=== PATIENT | male | born 1945 | race Caucasian/White ===

== ENCOUNTER 2019-11-28 21:22 | Inpatient (IN) ==
[2019-11-28] MEDS ORDERED: Isovue-370 500 ML BOTTLE IVP ONE (21:27)
[2019-11-28 21:51] LABS: Basophils # 0.1 K/mcL (0.0-0.2); Basophils % 0.8 %; Eosinophils # 0.4 K/mcL (0.0-0.6); Eosinophils % 3.6 %; Hematocrit 38.4 % (37.5-50.1); Lymphocytes # 2.2 K/mcL (0.6-4.6); Lymphocytes % 21.5 %; Mean Corpuscular HGB Conc 33.9 g/dL (31.6-35.5); Mean Corpuscular Hemoglobin 32.9 pg (28.0-33.3); Mean Corpuscular Volume 97.2 fL (83.0-100.0); Mean Platelet Volume 9.6 fL (9.4-12.4); Monocytes # 1.2 K/mcL (0.0-1.3); Neutrophils # 6.2 K/mcL (1.6-8.9); Platelet Count 147 K/mcL (140-400); Red Blood Count 3.95 M/mcL (4.19-5.50); Segmented Neutrophils % 61.1 %; White Blood Count 10.1 K/mcL (4.3-11.1)
[2019-11-28 22:04] LABS: BUN/Creatinine Ratio 26 (6-26); Blood Urea Nitrogen 35 mg/dL (8-23); Calcium 8.3 mg/dL (8.6-10.3); Carbon Dioxide 26 mEq/L (23-29); Chloride 107 mEq/L (98-107); Glucose 133 mg/dL (70-105); INR 1.1; Osmolality,Calculated 298 (280-300); Potassium 4.1 mEq/L (3.5-5.1); Prothrombin Time 12.4 Seconds (9.4-12.1); Sodium 139 mEq/L (136-145); eGFR For African Americans > 60 (> 60); eGFR For Non-African Americans 51 (> 60)
[2019-11-28 22:06] LABS: Activated Partial Thrombo Time 27.8 Seconds (26.0-36.0)
[2019-11-28 22:07] LABS: Troponin I < 0.03 ng/mL (< 0.04)
[2019-11-28 22:25] LABS: Bacteria,Urine Few per hpf (None-Few); Bilirubin,Urine Negative (Negative); Blood,Urine Negative (Negative); Clarity,Urine Clear (Clear); Color,Urine Light-Yellow (Yellow); Glucose,Urine (UA) Normal (Normal); Ketones,Urine Negative (Negative); Leukocyte Esterase,Urine Trace (Negative); Mucus,Urine Few per lpf (None-Few); Nitrite,Urine Negative (Negative); PH,Urine 5.5 pH Units (5.0-8.0); Protein,Urine 30 mg/dL (Neg-Trace); Specific Gravity,Urine > 1.030 (1.010-1.025); Squamous Epithelial Cell,Urine Few per hpf (None-Few); Urobilinogen,Urine Normal (Normal); WBC,Urine 0-3 per hpf (0-3)
[2019-11-28] MEDS ORDERED: *HR* LORazepam 2 MG/ML VIAL IVP ONE (23:21)
[2019-11-29] MEDS ORDERED: *HR* LORazepam 2 MG/ML VIAL IVP ONE (00:13)
[2019-11-29] MEDS ORDERED: levETIRAcetam 1,000 MG in 0.9 % Sodium Chloride 100 ML IVPB ONE (00:18)
[2019-11-29] MEDS ORDERED: *HR* Promethazine 25 MG/ML VIAL IVP PRN (00:29)
[2019-11-29] MEDS ORDERED: Naloxone 0.4 MG/ML INJ IVP PRN (00:29)
[2019-11-29] MEDS ORDERED: *HR* LORazepam 2 MG/ML VIAL IVP PRN (00:32)
[2019-11-29 00:42] LABS: Basophils % 0.8 %; Monocytes % 10.1 %; Red Cell Distribution Width 11.9 % (11.5-14.5)
[2019-11-29 00:44] LABS: Basophils # 0.1 K/mcL (0.0-0.2); Eosinophils # 0.3 K/mcL (0.0-0.6); Eosinophils % 1.8 %; Hematocrit 45.4 % (37.5-50.1); Hemoglobin 14.7 g/dL (12.9-16.9); Immature Granulocytes % 0.9 % (0-4); Lymphocytes # 3.4 K/mcL (0.6-4.6); Lymphocytes % 23.9 %; Mean Corpuscular HGB Conc 32.4 g/dL (31.6-35.5); Mean Corpuscular Hemoglobin 33.3 pg (28.0-33.3); Mean Corpuscular Volume 102.9 fL (83.0-100.0); Monocytes # 1.5 K/mcL (0.0-1.3); Platelet Count 126 K/mcL (140-400); Red Blood Count 4.41 M/mcL (4.19-5.50); Segmented Neutrophils % 62.5 %; White Blood Count 14.4 K/mcL (4.3-11.1)
[2019-11-29 01:04] LABS: Alanine Aminotransferase 8 Units/L (7-52); Albumin 3.8 g/dL (3.5-5.7); Albumin/Globulin Ratio 1.5 (1.1-2.2); Alkaline Phosphatase 58 Units/L (34-104); Aspartate Amino Transferase 12 Units/L (13-39); BUN/Creatinine Ratio 27 (6-26); Bilirubin,Total 0.5 mg/dL (0.3-1.0); Blood Urea Nitrogen 35 mg/dL (8-23); Calcium 8.7 mg/dL (8.6-10.3); Carbon Dioxide 19 mEq/L (23-29); Chloride 108 mEq/L (98-107); Globulin 2.5 g/dL (2.4-3.5); Glucose 128 mg/dL (70-105); Osmolality,Calculated 300 (280-300); Potassium 4.1 mEq/L (3.5-5.1); Sodium 140 mEq/L (136-145); Total Protein 6.3 g/dL (6.4-8.9); Troponin I < 0.03 ng/mL (< 0.04); eGFR For African Americans > 60 (> 60); eGFR For Non-African Americans 53 (> 60)
[2019-11-29 01:28] LABS: Prothrombin Time 11.7 Seconds (9.4-12.1)
[2019-11-29 01:29] LABS: Chol/HDL Ratio 3.1 (0-4.9); Cholesterol 129 mg/dL (< 200); HDL Cholesterol 42 mg/dL (40-59); LDL Cholesterol,Calculated 65 mg/dL (< 100); Triglycerides 110 mg/dL (< 150)
[2019-11-29 01:42] LABS: Thyroid Stimulating Hormone 2.252 mcIU/mL (0.340-5.600)
[2019-11-29 02:04] LABS: Folate 5.2 ng/mL (3.0-16.0)
[2019-11-29] MEDS ORDERED: Albuterol 2.5 MG/3 ML NEBULIZER IH PRN (02:42)
[2019-11-29] MEDS ORDERED: Ketoconazole Shampoo 120 ML BOTTLE TP SCH (03:30)
[2019-11-29 07:55] LABS: Estimated Average Glucose 120 mg/dl
[2019-11-29] MEDS ORDERED: Barium Sulfate 1 TAB TABLET PO ONE (10:11)
[2019-11-29] MEDS ORDERED: E-Z-HD (BARIUM SULF) SUSPENSION PO ONE (10:11)
[2019-11-29] MEDS ORDERED: E-Z-PAQUE (BARIUM SULF) SUSP 1 BOTTLE PO ONE (10:11)
[2019-11-29] MEDS: Sennosides 8.6 MG TABLET PO SCH (11:17)
[2019-11-29] MEDS: Spironolactone 25 MG TABLET PO SCH (11:18)
[2019-11-29] MEDS: hydroCHLOROthiazide 25 MG TABLET PO SCH (11:18)
[2019-11-29] MEDS: Finasteride 5 MG TABLET PO SCH (11:18)
[2019-11-29] MEDS: Divalproex Sodium 125 MG CAPSULE PO SCH (11:18)
[2019-11-30 05:12] LABS: Hematocrit 40.1 % (37.5-50.1); Hemoglobin 13.9 g/dL (12.9-16.9); Mean Corpuscular HGB Conc 34.7 g/dL (31.6-35.5); Mean Corpuscular Hemoglobin 33.8 pg (28.0-33.3); Mean Corpuscular Volume 97.6 fL (83.0-100.0); Mean Platelet Volume 9.7 fL (9.4-12.4); Platelet Count 150 K/mcL (140-400); Red Blood Count 4.11 M/mcL (4.19-5.50)
[2019-11-30 05:28] LABS: BUN/Creatinine Ratio 24 (6-26); Blood Urea Nitrogen 27 mg/dL (8-23); Carbon Dioxide 27 mEq/L (23-29); Chloride 105 mEq/L (98-107); Glucose 79 mg/dL (70-105); Osmolality,Calculated 290 (280-300); Sodium 138 mEq/L (136-145); eGFR For African Americans > 60 (> 60); eGFR For Non-African Americans > 60 (> 60)
[2019-11-30] MEDS: hydroCHLOROthiazide 25 MG TABLET PO SCH (08:08)
[2019-11-30] MEDS: Finasteride 5 MG TABLET PO SCH (08:09)
[2019-11-30] MEDS: Spironolactone 25 MG TABLET PO SCH (08:09)
[2019-11-30] MEDS: Divalproex Sodium 125 MG CAPSULE PO SCH (08:09)
[2019-11-30] MEDS: Sennosides 8.6 MG TABLET PO SCH (08:10)
[2019-12-01 05:33] LABS: Hematocrit 41.6 % (37.5-50.1); Hemoglobin 14.7 g/dL (12.9-16.9); Mean Corpuscular HGB Conc 35.3 g/dL (31.6-35.5); Mean Corpuscular Hemoglobin 33.8 pg (28.0-33.3); Mean Corpuscular Volume 95.6 fL (83.0-100.0); Mean Platelet Volume 9.8 fL (9.4-12.4); Platelet Count 164 K/mcL (140-400); Red Blood Count 4.35 M/mcL (4.19-5.50); Red Cell Distribution Width 11.8 % (11.5-14.5); White Blood Count 11.3 K/mcL (4.3-11.1)
[2019-12-01 05:52] LABS: BUN/Creatinine Ratio 28 (6-26); Blood Urea Nitrogen 35 mg/dL (8-23); Calcium 8.9 mg/dL (8.6-10.3); Carbon Dioxide 25 mEq/L (23-29); Chloride 104 mEq/L (98-107); Glucose 84 mg/dL (70-105); Osmolality,Calculated 293 (280-300); Potassium 3.7 mEq/L (3.5-5.1); Sodium 138 mEq/L (136-145); eGFR For African Americans > 60 (> 60); eGFR For Non-African Americans 57 (> 60)
[2019-12-01] MEDS: Spironolactone 25 MG TABLET PO SCH (08:37)
[2019-12-01] MEDS: Sennosides 8.6 MG TABLET PO SCH (08:37)
[2019-12-01] MEDS: hydroCHLOROthiazide 25 MG TABLET PO SCH (08:39)
[2019-12-01] MEDS: Finasteride 5 MG TABLET PO SCH (08:39)
[2019-12-01] MEDS: Divalproex Sodium 125 MG CAPSULE PO SCH (08:40)
[2019-12-01 23:36] LABS: Valproate Free 7 ug/mL (7-23); Valproate Total 37 ug/mL (50-125)
[2019-12-02 04:21] VITALS: BP 114/81
[2019-12-02 08:02] LABS: Valproate % Free 19 % (5-18)
== END 2019-12-02 06:59 | DRG 71 ==
LOC: EMEROOARM 21:22 → 3BNU 21:22 → SUATTDRO 11-29 14:14
PROVIDERS: ADMIT Student in an Organized Health Care Education/Training Program; ATTEND Nurse Practitioner Adult Health

== ENCOUNTER 2021-03-10 02:26 | Observation (INO) ==
[2021-03-10] MEDS ORDERED: Isovue-370 500 ML BOTTLE IVP ONE ×2 (02:37→06:12)
[2021-03-10 02:51] LABS: Hematocrit 41.1 % (37.5-50.1); Mean Corpuscular HGB Conc 34.1 g/dL (31.6-35.5); Mean Corpuscular Hemoglobin 32.5 pg (28.0-33.3); Mean Corpuscular Volume 95.4 fL (83.0-100.0); Platelet Count 131 K/mcL (140-400); Red Blood Count 4.31 M/mcL (4.19-5.50); Red Cell Distribution Width 12.1 % (11.5-14.5); White Blood Count 11.6 K/mcL (4.3-11.1)
[2021-03-10 02:58] LABS: INR 1.1; Prothrombin Time 12.8 Seconds (9.4-12.1)
[2021-03-10 03:02] LABS: Activated Partial Thrombo Time 29.6 Seconds (26.0-36.0)
[2021-03-10 04:16] LABS: BUN/Creatinine Ratio 15 (6-26); Blood Urea Nitrogen 18 mg/dL (8-23); Calcium 8.9 mg/dL (8.6-10.3); Carbon Dioxide 25 mEq/L (23-29); Chloride 109 mEq/L (98-107); Ethanol < 10 mg/dL (Less than 10); Glucose 124 mg/dL (70-105); Osmolality,Calculated 299 (280-300); Sodium 143 mEq/L (136-145); Troponin I < 0.03 ng/mL (< 0.04); eGFR For African Americans > 60 (> 60); eGFR For Non-African Americans > 60 (> 60)
[2021-03-10 05:33] LABS: Alanine Aminotransferase 8 Units/L (7-52); Albumin 3.6 g/dL (3.5-5.7); Albumin/Globulin Ratio 1.4 (1.1-2.2); Alkaline Phosphatase 90 Units/L (34-104); Aspartate Amino Transferase 10 Units/L (13-39); Bilirubin,Direct 0.2 mg/dL (0.0-0.2); Bilirubin,Indirect 0.7 mg/dL (0.0-1.0); Bilirubin,Total 0.9 mg/dL (0.3-1.0); Globulin 2.6 g/dL (2.4-3.5); Total Protein 6.2 g/dL (6.4-8.9); Valproate < 4 mcg/mL (50-100)
[2021-03-10 06:09] LABS: Bilirubin,Urine Negative (Negative); Blood,Urine Large (Negative); Clarity,Urine Cloudy (Clear); Color,Urine Yellow (Yellow); Glucose,Urine (UA) Normal (Normal); Ketones,Urine Negative (Negative); Leukocyte Esterase,Urine Small (Negative); Nitrite,Urine Negative (Negative); PH,Urine 5.5 pH Units (5.0-8.0); Protein,Urine Trace mg/dL (Neg-Trace); Specific Gravity,Urine 1.025 (1.010-1.025); Urobilinogen,Urine Normal (Normal)
[2021-03-10 06:13] LABS: Amphetamine Screen,Urine Negative ng/mL (Cutoff=1000); Barbiturate Screen,Urine Negative ng/mL (Cutoff=200)
[2021-03-10 06:14] LABS: Benzodiazepines Screen,Urine Negative ng/mL (Cutoff=300); Cannabinoid Screen,Urine Negative ng/mL (Cutoff = 50); Cocaine Screen,Urine Negative ng/mL (Cutoff= 300); Opiate Screen,Urine Negative ng/mL (Cutoff=300); Phencyclidine Screen,Urine Negative ng/mL (Cutoff=25)
[2021-03-10 06:17] LABS: RBC,Urine 30-50 per hpf (0-3); Squamous Epithelial Cell,Urine Few per hpf (None-Few); Transitional Epi Cells,Urine Few per hpf (None-Few)
[2021-03-10 06:18] LABS: Bacteria,Urine Few per hpf (None-Few)
[2021-03-10] MEDS ORDERED: Naloxone 0.4 MG/ML INJ IVP PRN (08:13)
[2021-03-10] MEDS ORDERED: Ondansetron 4 MG/2 ML VIAL IVP PRN (08:13)
[2021-03-10] MEDS ORDERED: D5% in Water 1,000 ML IVC PRN (08:42)
[2021-03-10] MEDS ORDERED: *HR* Dextrose 50 % in Water (Syg) 50 ML SYRINGE IVP PRN (08:42)
[2021-03-10] MEDS ORDERED: Dextrose Gel 15 GM/37.5 ML TUBE PO PRN ×2 (08:42)
[2021-03-10] MEDS ORDERED: Valproic Acid INJ 1,000 MG in 0.9 % Sodium Chloride 100 ML IVPB ONE (08:48)
[2021-03-10] MEDS ORDERED: Spironolactone 12.5 MG TABLET PO SCH (09:00)
[2021-03-10] MEDS ORDERED: Acetaminophen 325 MG TABLET PO PRN (12:28)
[2021-03-10] MEDS ORDERED: Bisacodyl 10 MG RECTAL SUPPOSITORY RC PRN (12:28)
[2021-03-10] MEDS: Finasteride 5 MG TABLET PO SCH (14:41)
[2021-03-10] MEDS: levETIRAcetam 250 MG TABLET PO SCH ×2 (14:41→20:05)
[2021-03-10] MEDS: Insulin LISPRO 300 UNITS/3 ML VIAL SUBQ SCH ×2 (14:42→18:18)
[2021-03-10] MEDS: Divalproex (12 HR) 500 MG TABLET PO SCH (20:04)
[2021-03-10] MEDS: Melatonin 3 MG TABLET PO SCH (20:05)
[2021-03-10] MEDS: Sennosides/Docusate Sodium TABLET PO SCH (20:14)
[2021-03-11] MEDS: Insulin LISPRO 300 UNITS/3 ML VIAL SUBQ SCH ×5 (02:40→23:24)
[2021-03-11 07:17] LABS: INR 1.2; Prothrombin Time 13.4 Seconds (9.4-12.1)
[2021-03-11 07:46] LABS: Hematocrit 39.4 % (37.5-50.1); Hemoglobin 13.1 g/dL (12.9-16.9); Mean Corpuscular HGB Conc 33.2 g/dL (31.6-35.5); Mean Corpuscular Volume 96.1 fL (83.0-100.0); Mean Platelet Volume 9.8 fL (9.4-12.4); Platelet Count 152 K/mcL (140-400); Red Cell Distribution Width 12.1 % (11.5-14.5)
[2021-03-11 08:07] LABS: Alanine Aminotransferase 7 Units/L (7-52); Albumin 3.5 g/dL (3.5-5.7); Albumin/Globulin Ratio 1.5 (1.1-2.2); Alkaline Phosphatase 86 Units/L (34-104); Aspartate Amino Transferase 12 Units/L (13-39); BUN/Creatinine Ratio 18 (6-26); Bilirubin,Total 1.3 mg/dL (0.3-1.0); Blood Urea Nitrogen 18 mg/dL (8-23); Calcium 8.7 mg/dL (8.6-10.3); Carbon Dioxide 27 mEq/L (23-29); Chloride 109 mEq/L (98-107); Chol/HDL Ratio 3.4 (0-4.9); Cholesterol 120 mg/dL (< 200); Globulin 2.4 g/dL (2.4-3.5); Glucose 57 mg/dL (70-105); HDL Cholesterol 35 mg/dL (40-59); LDL Cholesterol,Calculated 68 mg/dL (< 100); Osmolality,Calculated 288 (280-300); Potassium 3.7 mEq/L (3.5-5.1); Sodium 139 mEq/L (136-145); Total Protein 5.9 g/dL (6.4-8.9); Triglycerides 84 mg/dL (< 150); Troponin I < 0.03 ng/mL (< 0.04); eGFR For African Americans > 60 (> 60); eGFR For Non-African Americans > 60 (> 60)
[2021-03-11 08:29] LABS: Estimated Average Glucose 114 mg/dl; Hemoglobin A1C 5.6 %
[2021-03-11] MEDS: Finasteride 5 MG TABLET PO SCH (11:01)
[2021-03-11] MEDS: Divalproex (12 HR) 500 MG TABLET PO SCH (11:01)
[2021-03-11] MEDS: levETIRAcetam 250 MG TABLET PO SCH ×2 (11:01→20:02)
[2021-03-11 12:50] LABS: Influenza A PCR Negative (Negative); Influenza B PCR Negative (Negative); Resp. Syncytial Virus PCR Negative (Negative)
[2021-03-11 12:51] LABS: SARS-CoV-2 by PCR (In House) Negative (Negative)
[2021-03-11] MEDS: OXcarbazepine 150 MG TABLET PO SCH (20:03)
[2021-03-11] MEDS: Melatonin 3 MG TABLET PO SCH (20:03)
[2021-03-11] MEDS: Sennosides/Docusate Sodium TABLET PO SCH (20:03)
[2021-03-12] MEDS: Insulin LISPRO 300 UNITS/3 ML VIAL SUBQ SCH (06:08)
[2021-03-12 07:27] VITALS: BP 130/80; PULSE 96; TEMP 97.6; O2SAT 94
[2021-03-12] MEDS: OXcarbazepine 150 MG TABLET PO SCH (07:40)
[2021-03-12] MEDS: Finasteride 5 MG TABLET PO SCH (07:40)
[2021-03-12] MEDS: levETIRAcetam 250 MG TABLET PO SCH (07:41)
== END 2021-03-12 09:23 | disposition home or self-care (01) ==
LOC: EMEROOARM 02:26 → 3BNU 02:26 → SUATTDRO 08:26 → 3BNU 11:03
PROVIDERS: ADMIT Family Medicine; ATTEND Internal Medicine

== ENCOUNTER 2021-07-11 07:57 | Inpatient (IN) ==
[2021-07-11] MEDS ORDERED: 0.9 % Sodium Chloride 1,000 ML IVC ONE (08:09)
[2021-07-11] MEDS ORDERED: cefTRIAXone 1,000 MG in Water for inj. (sterile) 10 ML IVP ONE (08:10)
[2021-07-11] MEDS ORDERED: Isovue-370 500 ML BOTTLE IVP ONE ×2 (08:12→08:45)
[2021-07-11 08:53] LABS: Red Cell Distribution Width 12.4 % (11.5-14.5)
[2021-07-11 08:55] LABS: Hematocrit 39.3 % (37.5-50.1); Hemoglobin 13.5 g/dL (12.9-16.9); Mean Corpuscular HGB Conc 34.4 g/dL (31.6-35.5); Mean Corpuscular Hemoglobin 33.2 pg (28.0-33.3); Mean Corpuscular Volume 96.6 fL (83.0-100.0); Mean Platelet Volume 9.7 fL (9.4-12.4); Monocytes # 0.5 K/mcL (0.0-1.3); Platelet Count 106 K/mcL (140-400); Red Blood Count 4.07 M/mcL (4.19-5.50); White Blood Count 26.7 K/mcL (4.3-11.1)
[2021-07-11 09:04] LABS: INR 1.5; Prothrombin Time 16.6 Seconds (9.4-12.1)
[2021-07-11 09:06] LABS: Activated Partial Thrombo Time 31.9 Seconds (26.0-36.0)
[2021-07-11 09:21] LABS: Albumin 3.4 g/dL (3.5-5.7); Albumin/Globulin Ratio 1.5 (1.1-2.2); Bilirubin,Direct 0.4 mg/dL (0.0-0.2); Bilirubin,Indirect 0.5 mg/dL (0.0-1.0); Bilirubin,Total 0.9 mg/dL (0.3-1.0); Calcium 8.4 mg/dL (8.6-10.3); Globulin 2.2 g/dL (2.4-3.5); Lymphocytes # 0.5 K/mcL (0.6-4.6); Magnesium 1.4 mg/dL (1.6-2.6); Neutrophils # 25.6 K/mcL (1.6-8.9); Phosphorous 1.2 mg/dL (2.7-4.5); Platelet Estimate Slight Decrease (Normal); Potassium 3.2 mEq/L (3.5-5.1); Total Protein 5.6 g/dL (6.4-8.9); Troponin I 0.06 ng/mL (< 0.04)
[2021-07-11] MEDS ORDERED: cefTRIAXone 1,000 MG in 0.9 % Sodium Chloride 10 ML IVP ONE (09:23)
[2021-07-11 09:26] LABS: Influenza A PCR Negative (Negative); Influenza B PCR Negative (Negative); Resp. Syncytial Virus PCR Negative (Negative)
[2021-07-11 09:28] LABS: SARS-CoV-2 by PCR (In House) Negative (Negative)
[2021-07-11 09:55] LABS: Bilirubin,Urine Large (Negative); Blood,Urine Large (Negative); Clarity,Urine Cloudy (Clear); Color,Urine Brown (Yellow); Glucose,Urine (UA) 100 mg/dL (Normal); Ketones,Urine 15 mg/dL (Negative); Leukocyte Esterase,Urine Large (Negative); Nitrite,Urine Positive (Negative); Protein,Urine >=300 mg/dL (Neg-Trace)
[2021-07-11] MEDS ORDERED: Acetaminophen 325 MG TABLET PO PRN (11:35)
[2021-07-11] MEDS ORDERED: MOM Conc 10 ML UD.LIQ PO PRN (11:35)
[2021-07-11] MEDS ORDERED: Ondansetron ODT 4 MG TAB.RAPDIS SL PRN (11:35)
[2021-07-11] MEDS ORDERED: Melatonin 3 MG TABLET PO PRN (11:35)
[2021-07-11] MEDS ORDERED: Naloxone 0.4 MG/ML INJ IVP PRN (11:35)
[2021-07-11] MEDS ORDERED: GuaiFENesin Liq 200 MG/10 ML UDC PO PRN (11:36)
[2021-07-11] MEDS ORDERED: Levalbuterol Neb 1.25 MG/3 ML IH PRN (11:36)
[2021-07-11] MEDS ORDERED: Azithromycin 500 MG in 0.9 % Sodium Chloride 250 ML IVPB SCH (12:00)
[2021-07-11] MEDS ORDERED: Dextrose 4 GM Chewable Tablets PO PRN ×2 (14:05)
[2021-07-11] MEDS ORDERED: D5% in Water 1,000 ML IVC PRN (14:05)
[2021-07-11] MEDS ORDERED: 0.9 % Sodium Chloride 500 ML IVC ONE ×2 (15:44→16:47)
[2021-07-11] MEDS ORDERED: 0.9 % Sodium Chloride 1,000 ML IV ONE (17:42)
[2021-07-11] MEDS: Insulin LISPRO 300 UNITS/3 ML VIAL SUBQ SCH (17:59)
[2021-07-11] MEDS: Ertapenem 1,000 MG in 0.9 % Sodium Chloride Mini Bag 100 ML IVPB SCH (18:18)
[2021-07-11] MEDS: OXcarbazepine 150 MG TABLET PO SCH (20:38)
[2021-07-11] MEDS: levETIRAcetam 250 MG TABLET PO SCH (20:39)
[2021-07-11] MEDS: *HR* Heparin 5,000 UNIT/ML VIAL SQ SCH (21:19)
[2021-07-12] MEDS: Insulin LISPRO 300 UNITS/3 ML VIAL SUBQ SCH ×5 (02:50→23:35)
[2021-07-12] MEDS: *HR* Dextrose 50 % in Water (Syg) 50 ML SYRINGE IVP PRN ×3 (03:02→12:59)
[2021-07-12] MEDS: *HR* Heparin 5,000 UNIT/ML VIAL SQ SCH ×3 (05:12→21:38)
[2021-07-12] MEDS ORDERED: cefTRIAXone 2,000 MG in 0.9 % Sodium Chloride 20 ML IVP SCH (09:00)
[2021-07-12] MEDS: Ertapenem 1,000 MG in 0.9 % Sodium Chloride Mini Bag 100 ML IVPB SCH (10:41)
[2021-07-12] MEDS: Finasteride 5 MG TABLET PO SCH (13:18)
[2021-07-12] MEDS: levETIRAcetam 250 MG TABLET PO SCH ×2 (13:18→21:38)
[2021-07-12] MEDS: OXcarbazepine 150 MG TABLET PO SCH ×2 (13:25→21:38)
[2021-07-12 14:45] LABS: Eosinophils % 0.7 %; Hemoglobin 12.7 g/dL (12.9-16.9); Mean Platelet Volume 10.8 fL (9.4-12.4); Red Cell Distribution Width 12.8 % (11.5-14.5)
[2021-07-12 14:47] LABS: Basophils % 0.2 %; Eosinophils # 0.1 K/mcL (0.0-0.6); Hematocrit 37.7 % (37.5-50.1); Immature Granulocytes % 0.6 % (0-4); Lymphocytes # 0.7 K/mcL (0.6-4.6); Lymphocytes % 5.2 %; Mean Corpuscular HGB Conc 33.7 g/dL (31.6-35.5); Mean Corpuscular Hemoglobin 33.3 pg (28.0-33.3); Monocytes # 0.9 K/mcL (0.0-1.3); Neutrophils # 12.5 K/mcL (1.6-8.9); Red Blood Count 3.81 M/mcL (4.19-5.50); Segmented Neutrophils % 87.3 %; White Blood Count 14.3 K/mcL (4.3-11.1)
[2021-07-12 15:08] LABS: BUN/Creatinine Ratio 30 (6-26); Blood Urea Nitrogen 34 mg/dL (8-23); Calcium 8.1 mg/dL (8.6-10.3); Carbon Dioxide 26 mEq/L (23-29); Chloride 112 mEq/L (98-107); Glucose 109 mg/dL (70-105); Magnesium 1.9 mg/dL (1.6-2.6); Osmolality,Calculated 306 (280-300); Platelet Count 88 K/mcL (140-400); Potassium 3.5 mEq/L (3.5-5.1); Sodium 144 mEq/L (136-145); eGFR For African Americans > 60 (> 60); eGFR For Non-African Americans > 60 (> 60)
[2021-07-12 15:09] LABS: Platelet Estimate Slight Decrease (Normal)
[2021-07-13 03:03] VITALS: PULSE 92; TEMP 97.7
[2021-07-13 05:22] LABS: Hematocrit 37.1 % (37.5-50.1); Hemoglobin 12.4 g/dL (12.9-16.9); Immature Platelets 4.3 % (1.1-6.1); Mean Corpuscular HGB Conc 33.4 g/dL (31.6-35.5); Mean Corpuscular Hemoglobin 33.1 pg (28.0-33.3); Mean Corpuscular Volume 98.9 fL (83.0-100.0); Mean Platelet Volume 10.6 fL (9.4-12.4); Red Blood Count 3.75 M/mcL (4.19-5.50); Red Cell Distribution Width 12.6 % (11.5-14.5)
[2021-07-13 05:42] LABS: BUN/Creatinine Ratio 28 (6-26); Blood Urea Nitrogen 33 mg/dL (8-23); Calcium 8.4 mg/dL (8.6-10.3); Carbon Dioxide 25 mEq/L (23-29); Chloride 113 mEq/L (98-107); Glucose 86 mg/dL (70-105); Magnesium 2.1 mg/dL (1.6-2.6); Osmolality,Calculated 303 (280-300); Phosphorous 2.3 mg/dL (2.7-4.5); Potassium 3.6 mEq/L (3.5-5.1); Sodium 143 mEq/L (136-145); eGFR For African Americans > 60 (> 60); eGFR For Non-African Americans > 60 (> 60)
[2021-07-13] MEDS: *HR* Heparin 5,000 UNIT/ML VIAL SQ SCH (06:16)
[2021-07-13] MEDS: Insulin LISPRO 300 UNITS/3 ML VIAL SUBQ SCH (06:52)
[2021-07-13 07:29] VITALS: BP 142/89; O2SAT 94
[2021-07-13] MEDS: Ertapenem 1,000 MG in 0.9 % Sodium Chloride Mini Bag 100 ML IVPB SCH (09:03)
[2021-07-13] MEDS: OXcarbazepine 150 MG TABLET PO SCH (09:06)
[2021-07-13] MEDS: Finasteride 5 MG TABLET PO SCH (09:06)
[2021-07-13] MEDS: levETIRAcetam 250 MG TABLET PO SCH (09:06)
[2021-07-13 12:15] LABS: Influenza A PCR Negative (Negative); Influenza B PCR Negative (Negative); Resp. Syncytial Virus PCR Negative (Negative)
[2021-07-13 12:34] LABS: SARS-CoV-2 by PCR (In House) Negative (Negative)
== END 2021-07-13 14:32 | DRG 871 ==
LOC: EMEROOARM 07:57 → 3NENU 07:57 → SUATTDRO 11:01 → 3NENU 12:29
PROVIDERS: ADMIT Internal Medicine; ATTEND Internal Medicine